=== PATIENT | male | born 1980 | race Two or more races ===

== ENCOUNTER 2021-11-24 21:32 | Emergency (ER) | payer SELFPAY ==
[2021-11-24 21:32] VITALS: BP 165/102
== END 2021-11-24 21:58 | disposition left against medical advice (07) ==
LOC: ER 21:32
DX: S61.313A Laceration without foreign body of left middle finger with damage to nail, initial encounter (principal); S61.315A Laceration without foreign body of left ring finger with damage to nail, initial encounter; S61.317A Laceration without foreign body of left little finger with damage to nail, initial encounter; V86.59XA Driver of other special all-terrain or other off-road motor vehicle injured in nontraffic accident, initial encounter; Y93.89 Activity, other specified; Y92.89 Other specified places as the place of occurrence of the external cause; Y99.8 Other external cause status